=== PATIENT | male | born 1985 | race Two or more races ===

== ENCOUNTER 2016-09-04 11:36 | Emergency (ER) | payer OTHER, SELFPAY ==
[2016-09-04] MEDS ORDERED: ACETAMINOPHEN 325 MG TAB As Ordered ONE (14:53)
[2016-09-04] MEDS ORDERED: IBUPROFEN 800 MG TAB As Ordered ONE (14:54)
--- NOTE | 2016-09-04 14:56 | REP ---
Chest two views HISTORY: Cough Comparison: None Minimal peribronchial cuffing is present. The heart is normal in size. The pulmonary vasculature is normal in appearance. The bony structure is intact. IMPRESSION: There is minimal peribronchial cuffing consistent with asthma or bronchitis. Signed by Jose Laughlin MD 09/04/2016 02:48 P
[2016-09-04 15:42] LABS: ANION GAP 8 MEQ/L (8-16); BLOOD UREA NITROGEN 6 MG/DL (7-18); CALCIUM LEVEL 8.5 MG/DL (8.5-10.1); CARBON DIOXIDE LEVEL 26 MEQ/L (21-32); CHLORIDE LEVEL 101 MEQ/L (98-107); CREATININE FOR GFR 0.96 MG/DL (0.70-1.30); GLOMERULAR FILTRATION RATE > 60.0 (>60); GLUCOSE, FASTING 111 MG/DL (70-105); POTASSIUM SERUM 3.3 MEQ/L (3.5-5.1); SODIUM LEVEL 135 MEQ/L (136-145)
[2016-09-04] MEDS ORDERED: POTASSIUM CHLORIDE 10 MEQ SR TABLET As Ordered ONE (15:50)
[2016-09-04 15:53] LABS: BASO % 0.3 % (0.0-1.0); EOS % 0.1 % (0.0-3.0); LARGE UNSTAINED CELL # 0.1 K/mm3 (0.0-0.4); LARGE UNSTAINED CELL % 1.3 % (0.0-4.0); LYMPH # 0.5 K/mm3 (1.5-4.5); LYMPH % 7.2 % (24.0-44.0); MEAN CORPUSCULAR HEMOGLOBIN 30.6 pg (27.0-33.0); MEAN CORPUSCULAR HGB CONC 34.9 g/dl (32.0-36.5); MEAN CORPUSCULAR VOLUME 87.6 fl (80.0-96.0); MONO # 0.4 K/mm3 (0.0-0.8); MONO % 6.2 % (0.0-5.0); NEUTROPHILS # 5.3 K/mm3 (1.8-7.7); NEUTROPHILS % 84.9 % (36.0-66.0); PLATELET COUNT, AUTOMATED 167 k/mm3 (150-450); RED CELL DISTRIBUTION WIDTH 11.8 % (11.5-14.5); WHITE BLOOD COUNT 6.2 K/mm3 (4.0-10.0)
--- NOTE | 2016-09-04 16:32 | EDDOCDS ---
Physician Documentation [facility] Name: Saqib Novak Age: 31 yrs Sex: Male : 1985 Arrival Date: 09/04/2016 Time: 11:36 Bed I5 / M5 Private MD: No Pcp Disposition: 09/04/16 16:18 Discharged to Home/Self Care. Impression: Acute bronchitis, Fever, unspecified. - Condition is Stable. - Discharge Instructions: Acute Bronchitis, Fever, Adult. - Prescriptions for ZOFRAN ODT 4 mg - dissolve 1 tablet by ORAL route 4 times per day As needed do not chew, do not swallow whole; 10 tablet. Albuterol Sulfate 90 mcg/actuation Inhalation HFA Aerosol Inhaler - inhale 2 puff by INHALATION route every 4 hours As needed; 1 Inhaler. - Work Release Form - 3 day, Medication Reconciliation, Local Pharmacy Hours form. - [facility] up[facility]; When: Call to arrange an appointment; Reason: Recheck today's complaints, Continuance of care. - Problem is new. - Symptoms have improved. Historical: - Allergies: No known drug Allergies; - Home Meds: 1. ibuprofen 200 mg Oral tab 2 tabs (Last dose: 09/03/2016 22:30) - PMHx: Chronic Back pain; - PSHx: none; - Social history: Smoking status: Patient uses tobacco products, heavy tobacco smoker. No barriers to communication noted, The patient speaks fluent Thai, Speaks appropriately for age. - Family history: Not pertinent. - : The pt / caregiver states he / she is not on anticoagulants. Home medication list is obtained from the patient. - Exposure Risk Screening:: None identified. Vital Signs: 09/04 11:39 BP 171 / 89 RA Sitting (auto/reg); Pulse 110; Resp 20; Temp 99.5(O); Pulse Ox 99% on jrd R/A; Weight 86.64 kg / 191.01 lbs; Height 6 ft. 1 in. (185.42 cm); Pain 10/10; 14:22 BP 142 / 88; Pulse 120; Resp 24; Temp 103.9(O); Pulse Ox 99% on R/A; Pain 10/10; ct3 15:44 BP 144 / 73; Pulse 90; Resp 20; Temp 101.8(O); Pulse Ox 97% on R/A; Pain 9/10; ja5 16:18 Temp 100.9(O); dsf 16:29 BP 141 / 75; Pulse 93; Resp 20; Pulse Ox 96% on R/A; Pain 3/10; jc4 11:39 Body Mass Index 25.20 (86.64 kg, 185.42 cm) jrd MDM: 14:20 Vital Signs ordered. dt4 14:35 Chest, 2 View (pa\E\lat) Ordered. EDMS 14:37 IV Saline Lock ordered. dt4 14:37 NS 0.9% 1000 ml IV at bolus once ordered. dt4 14:37 Obtain sample by nasopharyngeal swab ordered. dt4 14:37 Acetaminophen Tablet 975 mg PO once ordered. dt4 14:37 Ibuprofen 800 mg PO once ordered. dt4 14:38 CBC with Diff Ordered. EDMS 14:38 Basic Metabolic Profile Ordered. EDMS 14:38 Urinalysis Ordered. EDMS 14:38 -Influenza A&B Rapid Antigen - Nose Ordered. EDMS 14:38 Urine Culture Ordered. EDMS 15:31 Financial registration complete. az 15:44 Potassium Chloride Extended Release Tablet 40 mEq PO once ordered. mo1 15:44 Chest, 2 View (pa\E\lat) Reviewed. mo1 15:44 [facility] Payment Agreement was scanned into [employer] and attached to record. az 16:01 -Influenza A&B Rapid Antigen - Nose Reviewed. mo1 16:01 CBC with Diff Reviewed. mo1 16:02 Basic Metabolic Profile Reviewed. mo1 16:11 Urinalysis Reviewed. mo1 Administered Medications: 14:59 Drug: Acetaminophen 975 mg [acetaminophen 325 mg tablet (3 tabs)] Route: PO; dsf 16:28 Follow up: Response: Temperature is decreased jc4 14:59 Drug: Ibuprofen 800 mg [ibuprofen 800 mg tablet (1 tabs)] Route: PO; dsf 16:28 Follow up: Response: Temperature is decreased jc4 15:04 Drug: NS 0.9% 1000 ml [sodium chloride 0.9 % intravenous solution] Route: IV; Rate: ja5 bolus; Site: left antecubital; 15:54 Follow up: IV Status: Completed infusion ja5 16:29 Follow up: BP 141 / 75; Pulse 93 bpm; Resp 20 bpm; Pulse Ox 96% RA; Pain 3/10 Adult jc4 15:53 Drug: Potassium Chloride 40 mEq [potassium chloride ER 10 mEq tablet,extended release ja5 (4 tabs)] Route: PO; Signatures: Dispatcher [employer] Jacki He RN RN hs1 Eve Colbert RN RN jc4 Dk Gabriel PA PA mo1 Adriana Handy PA-C PA-C dt4 Arlette Flores Desiree RN dsf Anderson, Jessica RN ja5 The chart was reviewed and I authenticate all verbal orders and agree with the evaluation and treatment provided.Attachments: 15:44 [facility] [place] Payment Agreement az MTDD
--- NOTE | 2016-09-04 16:33 | EDDOCDS ---
Nurse's Notes [facility] Name: Saqib Novak Age: 31 yrs Sex: Male : 1985 Arrival Date: 09/04/2016 Time: 11:36 Bed I5 / M5 Private MD: No Pcp Diagnosis: Acute bronchitis;Fever, unspecified Presentation: 09/04 11:41 Presenting complaint: Patient states: "Im sick as a dog" patient reports symptoms since hs1 Friday. Adult Sepsis Screening: The patient does not have new or worsening altered mentation. Patient's respiratory rate is less than 22. Systolic blood pressure is greater than 100. Patient has a qSOFA score of 0- Negative Sepsis Screen. Suicide/Homicide risk assessment- the patient denies having any suicidal and/or homicidal ideations and does not present with any other emotional, behavioral or mental health complaints. Status: Patient is not a maintenance service dispatcher or dependent. Transition of care: patient was not received from another setting of care. 11:41 Acuity: BRIAN Level 4 hs1 11:41 Method Of Arrival: Walkin/Carried/Asstd hs1 Triage Assessment: 11:42 General: Appears in no apparent distress, Behavior is cooperative. Pain: Location: all hs1 over Pain currently is 10 out of 10 on a pain scale. HIV screening NA for this visit Offered previously. Neurological: No deficits noted. Respiratory: Airway is patent Reports cough that is. GI: Reports nausea. Derm: Skin is pink, warm & dry. normal. Historical: - Allergies: No known drug Allergies; - Home Meds: 1. ibuprofen 200 mg Oral tab 2 tabs (Last dose: 09/03/2016 22:30) - PMHx: Chronic Back pain; - PSHx: none; - Social history: Smoking status: Patient uses tobacco products, heavy tobacco smoker. No barriers to communication noted, The patient speaks fluent Singaporean, Speaks appropriately for age. - Family history: Not pertinent. - : The pt / caregiver states he / she is not on anticoagulants. Home medication list is obtained from the patient. - Exposure Risk Screening:: None identified. Screenin:12 Screening information is obtained from the patient. Fall risk: No risks identified. ja5 Assistance ADL's: requires no assistance with activities of daily living. Abuse/DV Screen: The patient / caregiver reports he/she is: not in a situation that causes fear, pain or injury. Nutritional screening: On no prescribed diet. Advance Directives: Currently, there is no health care proxy. There is no active DNR order. There is no living will. There is no Power of Technical Programs Manager. home support is adequate. Assessment: 12:33 General: Patient states to registration staff he is going outside to have cigarette. hs1 15:12 General: Appears ill, Behavior is anxious, cooperative. Pain: Location: top of head and ja5 forehead Pain currently is 9 out of 10 on a pain scale. Neurological: Level of Consciousness is awake, alert, Oriented to person, place, time. Cardiovascular: Capillary refill < 3 seconds Heart tones S1 S2 present. Respiratory: Airway is patent Respiratory effort is even, unlabored, Respiratory pattern is regular, symmetrical, Breath sounds are clear bilaterally. GI: Denies nausea. Derm: Skin is intact, Skin is dry, Skin is normal, Skin temperature is hot. 16:29 General: Appears in no apparent distress, Behavior is cooperative, pleasant. Pain: Pain jc4 currently is 3 out of 10 on a pain scale. Neurological: Level of Consciousness is awake, alert, Oriented to person, place, time. Respiratory: Airway is patent Respiratory effort is even, unlabored, Respiratory pattern is regular, symmetrical. Derm: Skin is pink, warm & dry. Vital Signs: 11:39 BP 171 / 89 RA Sitting (auto/reg); Pulse 110; Resp 20; Temp 99.5(O); Pulse Ox 99% on jrd R/A; Weight 86.64 kg; Height 6 ft. 1 in. (185.42 cm); Pain 10/10; 14:22 BP 142 / 88; Pulse 120; Resp 24; Temp 103.9(O); Pulse Ox 99% on R/A; Pain 10/10; ct3 15:44 BP 144 / 73; Pulse 90; Resp 20; Temp 101.8(O); Pulse Ox 97% on R/A; Pain 9/10; ja5 16:18 Temp 100.9(O); dsf 16:29 BP 141 / 75; Pulse 93; Resp 20; Pulse Ox 96% on R/A; Pain 3/10; jc4 11:39 Body Mass Index 25.20 (86.64 kg, 185.42 cm) [facility] Vitals: 11:39 Log In Time: September 04, 2016 at 11:35. jrd ED Course: 11:37 Patient visited by Saqib Chinchilla PCA. jrd 11:37 Patient moved to Waiting jrd 11:39 No Pcp is Private Physician. jrd 11:39 Patient visited by Saqib Chinchilla PCA. jrd 11:40 Patient moved to Pre RCE jrd 11:41 Triage Initiated hs1 13:47 Patient moved to Triage 1 ct3 14:20 Adriana Handy PA-C is PHCP. dt4 14:20 Rogers Mathews MD is Attending Physician. dt4 14:20 Patient visited by Adriana Handy PA-C. dt4 14:24 Patient visited by Kadi Alcazar PCA. ct3 14:35 Patient moved to TR7 hs1 14:36 Eve Colbert, SHERWIN is Primary Nurse. mlb1 14:36 Ilene Ramey,SHERWIN is Primary Nurse. mlb1 14:36 Patient moved to I5 / M5 mlb1 14:39 The patient / caregiver is instructed regarding the plan of care and ED course. jc4 15:04 Basic Metabolic Profile Sent. ja5 15:04 CBC with Diff Sent. ja5 15:05 -Influenza A&B Rapid Antigen - Nose Sent. jc4 15:09 Inserted saline lock: 20 gauge in left antecubital area. ja5 15:15 Patient visited by Ilene Ramey RN. ja5 15:33 Chest, 2 View (pa\\E\\lat) Returned. EDMS 15:41 [facility] is Referral Physician. dt4 15:41 Your own Physician is Referral Physician. dt4 15:43 PHCP role handed off by Adriana Handy PA-C mo1 15:43 Dk Gabriel PA is PHCP. mo1 15:44 [facility] [place] was scanned into [employer] and attached to record. az 15:46 Urine Culture Sent. jc4 15:46 Urinalysis Sent. jc4 16:17 [facility] is Referral Physician. mo1 16:30 Discontinued lock intact, bleeding controlled, pressure dressing applied, No jc4 redness/swelling at site. No procedures done that require assistance. Administered Medications: 14:59 Drug: Acetaminophen 975 mg [acetaminophen 325 mg tablet (3 tabs)] Route: PO; dsf 16:28 Follow up: Response: Temperature is decreased jc4 14:59 Drug: Ibuprofen 800 mg [ibuprofen 800 mg tablet (1 tabs)] Route: PO; dsf 16:28 Follow up: Response: Temperature is decreased jc4 15:04 Drug: NS 0.9% 1000 ml [sodium chloride 0.9 % intravenous solution] Route: IV; Rate: ja5 bolus; Site: left antecubital; 15:54 Follow up: IV Status: Completed infusion ja5 16:29 Follow up: BP 141 / 75; Pulse 93 bpm; Resp 20 bpm; Pulse Ox 96% RA; Pain 310 Adult jc4 15:53 Drug: Potassium Chloride 40 mEq [potassium chloride ER 10 mEq tablet,extended release ja5 (4 tabs)] Route: PO; Order Results: Lab Order: CBC with Diff; SPEC'M 09/04/16 15:01 Test: WHITE BLOOD COUNT; Value: 6.2; Range: 4.0-10.0; Units: K/mm3; Status: F Test: RED BLOOD COUNT; Value: 4.93; Range: 4.30-6.10; Units: M/mm3; Status: F Test: HEMOGLOBIN; Value: 15.1; Range: 14.0-18.0; Units: g/dl; Status: F Test: HEMATOCRIT; Value: 43.1; Range: 42.0-52.0; Units: %; Status: F Test: MEAN CORPUSCULAR VOLUME; Value: 87.6; Range: 80.0-96.0; Units: fl; Status: F Test: MEAN CORPUSCULAR HEMOGLOBIN; Value: 30.6; Range: 27.0-33.0; Units: pg; Status: F Test: MEAN CORPUSCULAR HGB CONC; Value: 34.9; Range: 32.0-36.5; Units: g/dl; Status: F Test: RED CELL DISTRIBUTION WIDTH; Value: 11.8; Range: 11.5-14.5; Units: %; Status: F Test: PLATELET COUNT, AUTOMATED; Value: 167; Range: 150-450; Units: k/mm3; Status: F Test: NEUTROPHILS %; Value: 84.9; Range: 36.0-66.0; Abnormal: Above high normal; Units: %; Status: F Test: LYMPH %; Value: 7.2; Range: 24.0-44.0; Abnormal: Below low normal; Units: %; Status: F Test: MONO %; Value: 6.2; Range: 0.0-5.0; Abnormal: Above high normal; Units: %; Status: F Test: EOS %; Value: 0.1; Range: 0.0-3.0; Units: %; Status: F Test: BASO %; Value: 0.3; Range: 0.0-1.0; Units: %; Status: F Test: LARGE UNSTAINED CELL %; Value: 1.3; Range: 0.0-4.0; Units: %; Status: F Test: NEUTROPHILS #; Value: 5.3; Range: 1.8-7.7; Units: K/mm3; Status: F Test: LYMPH #; Value: 0.5; Range: 1.5-4.5; Abnormal: Below low normal; Units: K/mm3; Status: F Test: MONO #; Value: 0.4; Range: 0.0-0.8; Units: K/mm3; Status: F Test: EOS #; Value: 0.0; Range: 0.0-0.50; Units: K/mm3; Status: F Test: BASO #; Value: 0.0; Range: 0.0-0.2; Units: K/mm3; Status: F Test: LARGE UNSTAINED CELL #; Value: 0.1; Range: 0.0-0.4; Units: K/mm3; Status: F Lab Order: Basic Metabolic Profile; [facility] 09/04/16 15:01 Test: GLUCOSE, FASTING; Value: 111; Range: 70-105; Abnormal: Above high normal; Units: MG/DL; Status: F Test: BLOOD UREA NITROGEN; Value: 6; Range: 7-18; Abnormal: Below low normal; Units: MG/DL; Status: F Test: CREATININE FOR GFR; Value: 0.96; Range: 0.70-1.30; Units: MG/DL; Status: F Test: GLOMERULAR FILTRATION RATE; Value: > 60.0; Range: >60; Status: F Test: SODIUM LEVEL; Value: 135; Range: 136-145; Abnormal: Below low normal; Units: MEQ/L; Status: F Test: POTASSIUM SERUM; Value: 3.3; Range: 3.5-5.1; Abnormal: Below low normal; Units: MEQ/L; Status: F Test: CHLORIDE LEVEL; Value: 101; Range: 98-107; Units: MEQ/L; Status: F Test: CARBON DIOXIDE LEVEL; Value: 26; Range: 21-32; Units: MEQ/L; Status: F Test: ANION GAP; Value: 8; Range: 8-16; Units: MEQ/L; Status: F Test: CALCIUM LEVEL; Value: 8.5; Range: 8.5-10.1; Units: MG/DL; Status: F Test Note: ; Units are mL/min/1.73 m2 Chronic Kidney Disease Staging per NKF: Stage I & II GFR >=60 Normal to Mildly Decreased Stage III GFR 30-59 Moderately Decreased Stage IV GFR 15-29 Severely Decreased Stage V GFR <15 Very Little GFR Left ESRD GFR <15 on SOCIAL SERVICES ASSISTANT Lab Order: -Influenza A&B Rapid Antigen - Nose; SPEC'M 09/04/16 15:01 Test: INFLUENZA A RAPID SCR by ICA; Value: INFLUENZA A RESULTS NEGATIVE; Status: F Test: INFLUENZA A RAPID SCR by ICA; Value: Comments:; Status: F Test: INFLUENZA B RAPID SCR by ICA; Value: INFLUENZA B RESULTS NEGATIVE; Status: F Test Note: ; The Influenza test is a direct rapid immunoassay for the qualitative detection of Influenza viral antigen. Cell culture (Viral Culture) testing should be considered to confirm NEGATIVE results and to assist in detecting other viruses that can provide similar clinical symptoms. Please contact the lab within 24 hours ([phone]) if confirmatory testing is desired. Lab Order: Urinalysis; SPEC'M 09/04/16 15:43 Test: APPEARANCE, URINE; Value: CLEAR; Range: CLEAR; Status: F Test: COLOR, URINE; Value: YELLOW; Range: YELLOW; Status: F Test: PH,URINE; Value: 8.0; Range: 5.0-9.0; Units: UNITS; Status: F Test: SPECIFIC GRAVITY URINE AUTO; Value: 1.020; Range: 1.002-1.035; Status: F Test: PROTEIN, URINE AUTO; Value: NEGATIVE; Range: NEGATIVE; Units: mg/dL; Status: F Test: GLUCOSE, URINE (UA) AUTO; Value: NEGATIVE; Range: NEGATIVE; Units: mg/dL; Status: F Test: KETONE, URINE AUTO; Value: TRACE; Range: NEGATIVE; Abnormal: Above high normal; Units: mg/dL; Status: F Test: UROBILINOGEN, URINE AUTO; Value: 2.0; Range: 0.0-2.0; Abnormal: Above high normal; Units: mg/dL; Status: F Test: BILIRUBIN, URINE AUTO; Value: NEGATIVE; Range: NEGATIVE; Status: F Test: NITRITE, URINE AUTO; Value: NEGATIVE; Range: NEGATIVE; Status: F Test: LEUKOCYTE ESTERASE, URINE AUTO; Value: NEGATIVE; Range: NEGATIVE; Status: F Test: BLOOD, URINE BLOOD; Value: NEGATIVE; Range: NEGATIVE; Status: F Test: WBC, URINE AUTO; Value: 1; Range: 0-3; Units: /HPF; Status: F Test: RBC, URINE AUTO; Value: 6; Range: 0-3; Abnormal: Above high normal; Units: /HPF; Status: F Test: BACTERIA, URINE AUTO; Value: NEGATIVE; Range: NEGATIVE; Status: F Test: SQUAMOUS EPITHELIAL CELL UR AU; Value: 0; Range: 0-6; Units: /HPF; Status: F Test: MUCUS, URINE; Value: SMALL; Range: NEGATIVE; Status: F Test: HYALINE CAST, URINE AUTO; Value: 0; Range: 0-1; Units: /LPF; Status: F Radiology Order: Chest, 2 View (pa\\E\\lat) Test: Chest, 2 View (pa\\E\\lat) REASON FOR EXAMINATION: fever;Cough; Chest two views; ; HISTORY: Cough; ; Comparison: None; ; Minimal peribronchial cuffing is present. The heart is normal in size. The; pulmonary vasculature is normal in appearance. The bony structure is intact.; ; IMPRESSION: There is minimal peribronchial cuffing consistent with asthma or; bronchitis.; ; ; Signed by; Jose Laughlin MD 09/04/2016 02:48 P; Outcome: 15:41 Discharge ordered by Provider. dt4 16:18 Discharge ordered by Provider. mo1 16:30 Discharge Assessment: Patient awake, alert and oriented x 3. No cognitive and/or jc4 functional deficits noted. Patient verbalized understanding of disposition instructions. patient administered narcotics - no. The following High Risk Discharge criteria are identified: None. Discharged to home ambulatory. Condition: stable. Discharge instructions given to patient, Instructed on discharge instructions, follow up and referral plans. medication usage, Demonstrated understanding of instructions, medications, Pt was receptive of discharge instructions/ teaching. Work note provided to patient. No special radiology studies were completed. Property :Personal belongings accompany Pt. 16:31 Patient left the ED. jc4 Signatures: Dispatcher [employer] EDPR Dk Nogueira RN RN mlb1 Jacki Roldan RN RN hs1 Eve Colbert RN RN jc4 Kadi Alcazar, BEAD SUPERVISOR BEAD SUPERVISOR ct3 Starla Lainez,RN RN dsf Dk Gabriel PA PA mo1 Adriana Handy, PA-C PA-C dt4 Saqib Chinchilla, BEAD SUPERVISOR BEAD SUPERVISOR d Arlette Flores Jessica,RN RN ja5 Corrections: (The following items were deleted from the chart) 11:43 11:41 Presenting complaint: Patient states: "Im sick as a dog" hs1 hs1 MTDD
--- NOTE | 2016-09-06 17:31 | EDDOCDS ---
Physician Documentation [facility] Name: Saqib Novak Age: 31 yrs Sex: Male : 1985 Arrival Date: 09/04/2016 Time: 11:36 Bed I5 / M5 Private MD: No Pcp Disposition: 09/04/16 16:18 Discharged to Home/Self Care. Impression: Acute bronchitis, Fever, unspecified. - Condition is Stable. - Discharge Instructions: Acute Bronchitis, Fever, Adult. - Prescriptions for ZOFRAN ODT 4 mg - dissolve 1 tablet by ORAL route 4 times per day As needed do not chew, do not swallow whole; 10 tablet. Albuterol Sulfate 90 mcg/actuation Inhalation HFA Aerosol Inhaler - inhale 2 puff by INHALATION route every 4 hours As needed; 1 Inhaler. - Work Release Form - 3 day, Medication Reconciliation, Local Pharmacy Hours form. - Follow up: [facility]; When: Call to arrange an appointment; Reason: Recheck today's complaints, Continuance of care. - Problem is new. - Symptoms have improved. Historical: - Allergies: No known drug Allergies; - Home Meds: 1. ibuprofen 200 mg Oral tab 2 tabs (Last dose: 09/03/2016 22:30) - PMHx: Chronic Back pain; - PSHx: none; - Social history: Smoking status: Patient uses tobacco products, heavy tobacco smoker. No barriers to communication noted, The patient speaks fluent Latvian, Speaks appropriately for age. - Family history: Not pertinent. - : The pt / caregiver states he / she is not on anticoagulants. Home medication list is obtained from the patient. - Exposure Risk Screening:: None identified. Vital Signs: 09/04 11:39 BP 171 / 89 RA Sitting (auto/reg); Pulse 110; Resp 20; Temp 99.5(O); Pulse Ox 99% on jrd R/A; Weight 86.64 kg / 191.01 lbs; Height 6 ft. 1 in. (185.42 cm); Pain 10/10; 14:22 BP 142 / 88; Pulse 120; Resp 24; Temp 103.9(O); Pulse Ox 99% on R/A; Pain 10/10; ct3 15:44 BP 144 / 73; Pulse 90; Resp 20; Temp 101.8(O); Pulse Ox 97% on R/A; Pain 9/10; ja5 16:18 Temp 100.9(O); dsf 16:29 BP 141 / 75; Pulse 93; Resp 20; Pulse Ox 96% on R/A; Pain 3/10; jc4 11:39 Body Mass Index 25.20 (86.64 kg, 185.42 cm) jrd MDM: 14:20 Vital Signs ordered. dt4 14:35 Chest, 2 View (pa\E\lat) Ordered. EDMS 14:37 IV Saline Lock ordered. dt4 14:37 NS 0.9% 1000 ml IV at bolus once ordered. dt4 14:37 Obtain sample by nasopharyngeal swab ordered. dt4 14:37 Acetaminophen Tablet 975 mg PO once ordered. dt4 14:37 Ibuprofen 800 mg PO once ordered. dt4 14:38 CBC with Diff Ordered. EDMS 14:38 Basic Metabolic Profile Ordered. EDMS 14:38 Urinalysis Ordered. EDMS 14:38 -Influenza A&B Rapid Antigen - Nose Ordered. EDMS 14:38 Urine Culture Ordered. EDMS 15:31 Financial registration complete. az 15:44 Potassium Chloride Extended Release Tablet 40 mEq PO once ordered. mo1 15:44 Chest, 2 View (pa\E\lat) Reviewed. mo1 15:44 [facility] Payment Agreement was scanned into [employer] and attached to record. az 16:01 -Influenza A&B Rapid Antigen - Nose Reviewed. mo1 16:01 CBC with Diff Reviewed. mo1 16:02 Basic Metabolic Profile Reviewed. mo1 16:11 Urinalysis Reviewed. mo1 09/05 09:13 T-Sheet-- Draft Copy was scanned into [employer] and attached to record. gb Administered Medications: 09/04 14:59 Drug: Acetaminophen 975 mg [acetaminophen 325 mg tablet (3 tabs)] Route: PO; dsf 16:28 Follow up: Response: Temperature is decreased jc4 14:59 Drug: Ibuprofen 800 mg [ibuprofen 800 mg tablet (1 tabs)] Route: PO; dsf 16:28 Follow up: Response: Temperature is decreased jc4 15:04 Drug: NS 0.9% 1000 ml [sodium chloride 0.9 % intravenous solution] Route: IV; Rate: ja5 bolus; Site: left antecubital; 15:54 Follow up: IV Status: Completed infusion ja5 16:29 Follow up: BP 141 / 75; Pulse 93 bpm; Resp 20 bpm; Pulse Ox 96% RA; Pain 310 Adult jc4 15:53 Drug: Potassium Chloride 40 mEq [potassium chloride ER 10 mEq tablet,extended release ja5 (4 tabs)] Route: PO; Signatures: Dispatcher [employer] EDMS Luisa Jolley, Reg Reg gb Jacki Roldan RN RN hs1 Eve Colbert RN RN jc4 Dk Gabriel PA PA mo1 Adriana Handy PA-C PAChari dt4 Areltte Flores Desiree RN dsf Anderson, Jessica RN ja5 The chart was reviewed and I authenticate all verbal orders and agree with the evaluation and treatment provided.Attachments: 15:44 [facility] Payment Agreement az 09/05 09:13 T-Sheet-- Draft Copy gb Chart Complete MTDD
--- NOTE | 2016-09-06 17:31 | EDDOCDS ---
Physician Documentation [facility] Name: Saqib Novak Age: 31 yrs Sex: Male : 1985 Arrival Date: 09/04/2016 Time: 11:36 Bed I5 / M5 Private MD: No Pcp Disposition: 09/04/16 16:18 Discharged to Home/Self Care. Impression: Acute bronchitis, Fever, unspecified. - Condition is Stable. - Discharge Instructions: Acute Bronchitis, Fever, Adult. - Prescriptions for ZOFRAN ODT 4 mg - dissolve 1 tablet by ORAL route 4 times per day As needed do not chew, do not swallow whole; 10 tablet. Albuterol Sulfate 90 mcg/actuation Inhalation HFA Aerosol Inhaler - inhale 2 puff by INHALATION route every 4 hours As needed; 1 Inhaler. - Work Release Form - 3 day, Medication Reconciliation, Local Pharmacy Hours form. - [facility] up: [facility]; When: Call to arrange an appointment; Reason: Recheck today's complaints, Continuance of care. - Problem is new. - Symptoms have improved. Historical: - Allergies: No known drug Allergies; - Home Meds: 1. ibuprofen 200 mg Oral tab 2 tabs (Last dose: 09/03/2016 22:30) - PMHx: Chronic Back pain; - PSHx: none; - Social history: Smoking status: Patient uses tobacco products, heavy tobacco smoker. No barriers to communication noted, The patient speaks fluent Chinese, Speaks appropriately for age. - Family history: Not pertinent. - : The pt / caregiver states he / she is not on anticoagulants. Home medication list is obtained from the patient. - Exposure Risk Screening:: None identified. Vital Signs: 09/04 11:39 BP 171 / 89 RA Sitting (auto/reg); Pulse 110; Resp 20; Temp 99.5(O); Pulse Ox 99% on jrd R/A; Weight 86.64 kg / 191.01 lbs; Height 6 ft. 1 in. (185.42 cm); Pain 10/10; 14:22 BP 142 / 88; Pulse 120; Resp 24; Temp 103.9(O); Pulse Ox 99% on R/A; Pain 10/10; ct3 15:44 BP 144 / 73; Pulse 90; Resp 20; Temp 101.8(O); Pulse Ox 97% on R/A; Pain 9/10; ja5 16:18 Temp 100.9(O); dsf 16:29 BP 141 / 75; Pulse 93; Resp 20; Pulse Ox 96% on R/A; Pain 3/10; jc4 11:39 Body Mass Index 25.20 (86.64 kg, 185.42 cm) jrd MDM: 14:20 Vital Signs ordered. dt4 14:35 Chest, 2 View (pa\E\lat) Ordered. EDMS 14:37 IV Saline Lock ordered. dt4 14:37 NS 0.9% 1000 ml IV at bolus once ordered. dt4 14:37 Obtain sample by nasopharyngeal swab ordered. dt4 14:37 Acetaminophen Tablet 975 mg PO once ordered. dt4 14:37 Ibuprofen 800 mg PO once ordered. dt4 14:38 CBC with Diff Ordered. EDMS 14:38 Basic Metabolic Profile Ordered. EDMS 14:38 Urinalysis Ordered. EDMS 14:38 -Influenza A&B Rapid Antigen - Nose Ordered. EDMS 14:38 Urine Culture Ordered. EDMS 15:31 Financial registration complete. az 15:44 Potassium Chloride Extended Release Tablet 40 mEq PO once ordered. mo1 15:44 Chest, 2 View (pa\E\lat) Reviewed. mo1 15:44 [facility] Payment Agreement was scanned into Vacation View and attached to record. az 16:01 -Influenza A&B Rapid Antigen - Nose Reviewed. mo1 16:01 CBC with Diff Reviewed. mo1 16:02 Basic Metabolic Profile Reviewed. mo1 16:11 Urinalysis Reviewed. mo1 09/05 09:13 T-Sheet-- Draft Copy was scanned into [employer]ation View and attached to record. gb Administered Medications: 09/04 14:59 Drug: Acetaminophen 975 mg [acetaminophen 325 mg tablet (3 tabs)] Route: PO; dsf 16:28 Follow up: Response: Temperature is decreased jc4 14:59 Drug: Ibuprofen 800 mg [ibuprofen 800 mg tablet (1 tabs)] Route: PO; dsf 16:28 Follow up: Response: Temperature is decreased jc4 15:04 Drug: NS 0.9% 1000 ml [sodium chloride 0.9 % intravenous solution] Route: IV; Rate: ja5 bolus; Site: left antecubital; 15:54 Follow up: IV Status: Completed infusion ja5 16:29 Follow up: BP 141 / 75; Pulse 93 bpm; Resp 20 bpm; Pulse Ox 96% RA; Pain 310 Adult jc4 15:53 Drug: Potassium Chloride 40 mEq [potassium chloride ER 10 mEq tablet,extended release ja5 (4 tabs)] Route: PO; Signatures: Dispatcher MedHost EDMS Luisa Jolley, Reg Reg gb Jacki Roldan RN RN hs1 Eve Colbert RN RN jc4 Dk Gabriel PA PA mo1 Adriana Handy PA-C PAChari dt4 Arlette Flores Desiree RN dsf Anderson, Jessica RN ja5 The chart was reviewed and I authenticate all verbal orders and agree with the evaluation and treatment provided.Attachments: 15:44 [facility] Payment Agreement az 09/05 09:13 T-Sheet-- Draft Copy gb Chart Complete MTDD
--- NOTE | 2016-09-06 17:31 | EDDOCDS ---
Nurse's Notes [facility] Name: Saqib Novak Age: 31 yrs Sex: Male : 1985 Arrival Date: 09/04/2016 Time: 11:36 Bed I5 / M5 Private MD: No Pcp Diagnosis: Acute bronchitis;Fever, unspecified Presentation: 09/04 11:41 Presenting complaint: Patient states: "Im sick as a dog" patient reports symptoms since hs1 Friday. Adult Sepsis Screening: The patient does not have new or worsening altered mentation. Patient's respiratory rate is less than 22. Systolic blood pressure is greater than 100. Patient has a qSOFA score of 0- Negative Sepsis Screen. Suicide/Homicide risk assessment- the patient denies having any suicidal and/or homicidal ideations and does not present with any other emotional, behavioral or mental health complaints. 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 Transition of care: patient was not received from another setting of care. 11:41 Acuity: BRIAN Level 4 hs1 11:41 Method Of Arrival: Walkin/Carried/Asstd hs1 Triage Assessment: 11:42 General: Appears in no apparent distress, Behavior is cooperative. Pain: Location: all hs1 over Pain currently is 10 out of 10 on a pain scale. HIV screening NA for this visit Offered previously. Neurological: No deficits noted. Respiratory: Airway is patent Reports cough that is. GI: Reports nausea. Derm: Skin is pink, warm & dry. normal. Historical: - Allergies: No known drug Allergies; - Home Meds: 1. ibuprofen 200 mg Oral tab 2 tabs (Last dose: 09/03/2016 22:30) - PMHx: Chronic Back pain; - PSHx: none; - Social history: Smoking status: Patient uses tobacco products, heavy tobacco smoker. No barriers to communication noted, The patient speaks fluent Eritrean, Speaks appropriately for age. - Family history: Not pertinent. - : The pt / caregiver states he / she is not on anticoagulants. Home medication list is obtained from the patient. - Exposure Risk Screening:: None identified. Screenin:12 Screening information is obtained from the patient. Fall risk: No risks identified. ja5 Assistance ADL's: requires no assistance with activities of daily living. Abuse/DV Screen: The patient / caregiver reports he/she is: not in a situation that causes fear, pain or injury. Nutritional screening: On no prescribed diet. Advance Directives: Currently, there is no health care proxy. There is no active DNR order. There is no living will. There is no Power of Bung Sewer. home support is adequate. Assessment: 12:33 General: Patient states to registration staff he is going outside to have cigarette. hs1 15:12 General: Appears ill, Behavior is anxious, cooperative. Pain: Location: top of head and ja5 forehead Pain currently is 9 out of 10 on a pain scale. Neurological: Level of Consciousness is awake, alert, Oriented to person, place, time. Cardiovascular: Capillary refill < 3 seconds Heart tones S1 S2 present. Respiratory: Airway is patent Respiratory effort is even, unlabored, Respiratory pattern is regular, symmetrical, Breath sounds are clear bilaterally. GI: Denies nausea. Derm: Skin is intact, Skin is dry, Skin is normal, Skin temperature is hot. 16:29 General: Appears in no apparent distress, Behavior is cooperative, pleasant. Pain: Pain jc4 currently is 3 out of 10 on a pain scale. Neurological: Level of Consciousness is awake, alert, Oriented to person, place, time. Respiratory: Airway is patent Respiratory effort is even, unlabored, Respiratory pattern is regular, symmetrical. Derm: Skin is pink, warm & dry. Vital Signs: 11:39 BP 171 / 89 RA Sitting (auto/reg); Pulse 110; Resp 20; Temp 99.5(O); Pulse Ox 99% on jrd R/A; Weight 86.64 kg; Height 6 ft. 1 in. (185.42 cm); Pain 10/10; 14:22 BP 142 / 88; Pulse 120; Resp 24; Temp 103.9(O); Pulse Ox 99% on R/A; Pain 10/10; ct3 15:44 BP 144 / 73; Pulse 90; Resp 20; Temp 101.8(O); Pulse Ox 97% on R/A; Pain 9/10; ja5 16:18 Temp 100.9(O); dsf 16:29 BP 141 / 75; Pulse 93; Resp 20; Pulse Ox 96% on R/A; Pain 3/10; jc4 11:39 Body Mass Index 25.20 (86.64 kg, 185.42 cm) [facility] Vitals: 11:39 Log In Time: September 04, 2016 at 11:35. jrd ED Course: 11:37 Patient visited by Saqib Chinchilla PCA. jrd 11:37 Patient moved to Waiting jrd 11:39 No Pcp is Private Physician. jrd 11:39 Patient visited by Saqib Chinchilla PCA. jrd 11:40 Patient moved to Pre RCE jrd 11:41 Triage Initiated hs1 13:47 Patient moved to Triage 1 ct3 14:20 Adriana Handy PA-C is PHCP. dt4 14:20 Rogers Mathews MD is Attending Physician. dt4 14:20 Patient visited by Adriana Handy PA-C. dt4 14:24 Patient visited by Kadi Alcazar PCA. ct3 14:35 Patient moved to TR7 hs1 14:36 Eve Colbert, SHERWIN is Primary Nurse. mlb1 14:36 Ilene Ramey,SHERWIN is Primary Nurse. mlb1 14:36 Patient moved to I5 / M5 mlb1 14:39 The patient / caregiver is instructed regarding the plan of care and ED course. jc4 15:04 Basic Metabolic Profile Sent. ja5 15:04 CBC with Diff Sent. ja5 15:05 -Influenza A&B Rapid Antigen - Nose Sent. jc4 15:09 Inserted saline lock: 20 gauge in left antecubital area. ja5 15:15 Patient visited by Ilene Ramey,SHERWIN. ja5 15:33 Chest, 2 View (pa\\E\\lat) Returned. EDMS 15:41 [facility] is Referral Physician. dt4 15:41 Your own Physician is Referral Physician. dt4 15:43 PHCP role handed off by Adriana Handy PA-C mo1 15:43 Dk Gabriel PA is PHCP. mo1 15:44 [facility] [place] [facility] Payment Agreement was scanned into Bookitit and attached to record. az 15:46 Urine Culture Sent. jc4 15:46 Urinalysis Sent. jc4 16:17 [facility] is Referral Physician. mo1 16:30 Discontinued lock intact, bleeding controlled, pressure dressing applied, No jc4 redness/swelling at site. No procedures done that require assistance. 09/05 09:13 T-Sheet-- Draft Copy was scanned into Bookitit and attached to record. gb Administered Medications: 09/04 14:59 Drug: Acetaminophen 975 mg [acetaminophen 325 mg tablet (3 tabs)] Route: PO; dsf 16:28 Follow up: Response: Temperature is decreased jc4 14:59 Drug: Ibuprofen 800 mg [ibuprofen 800 mg tablet (1 tabs)] Route: PO; dsf 16:28 Follow up: Response: Temperature is decreased jc4 15:04 Drug: NS 0.9% 1000 ml [sodium chloride 0.9 % intravenous solution] Route: IV; Rate: ja5 bolus; Site: left antecubital; 15:54 Follow up: IV Status: Completed infusion ja5 16:29 Follow up: BP 141 / 75; Pulse 93 bpm; Resp 20 bpm; Pulse Ox 96% RA; Pain 10/04 Adult jc4 15:53 Drug: Potassium Chloride 40 mEq [potassium chloride ER 10 mEq tablet,extended release ja5 (4 tabs)] Route: PO; Order Results: Lab Order: CBC with Diff; SPEC'M 09/04/16 15:01 Test: WHITE BLOOD COUNT; Value: 6.2; Range: 4.0-10.0; Units: K/mm3; Status: F Test: RED BLOOD COUNT; Value: 4.93; Range: 4.30-6.10; Units: M/mm3; Status: F Test: HEMOGLOBIN; Value: 15.1; Range: 14.0-18.0; Units: g/dl; Status: F Test: HEMATOCRIT; Value: 43.1; Range: 42.0-52.0; Units: %; Status: F Test: MEAN CORPUSCULAR VOLUME; Value: 87.6; Range: 80.0-96.0; Units: fl; Status: F Test: MEAN CORPUSCULAR HEMOGLOBIN; Value: 30.6; Range: 27.0-33.0; Units: pg; Status: F Test: MEAN CORPUSCULAR HGB CONC; Value: 34.9; Range: 32.0-36.5; Units: g/dl; Status: F Test: RED CELL DISTRIBUTION WIDTH; Value: 11.8; Range: 11.5-14.5; Units: %; Status: F Test: PLATELET COUNT, AUTOMATED; Value: 167; Range: 150-450; Units: k/mm3; Status: F Test: NEUTROPHILS %; Value: 84.9; Range: 36.0-66.0; Abnormal: Above high normal; Units: %; Status: F Test: LYMPH %; Value: 7.2; Range: 24.0-44.0; Abnormal: Below low normal; Units: %; Status: F Test: MONO %; Value: 6.2; Range: 0.0-5.0; Abnormal: Above high normal; Units: %; Status: F Test: EOS %; Value: 0.1; Range: 0.0-3.0; Units: %; Status: F Test: BASO %; Value: 0.3; Range: 0.0-1.0; Units: %; Status: F Test: LARGE UNSTAINED CELL %; Value: 1.3; Range: 0.0-4.0; Units: %; Status: F Test: NEUTROPHILS #; Value: 5.3; Range: 1.8-7.7; Units: K/mm3; Status: F Test: LYMPH #; Value: 0.5; Range: 1.5-4.5; Abnormal: Below low normal; Units: K/mm3; Status: F Test: MONO #; Value: 0.4; Range: 0.0-0.8; Units: K/mm3; Status: F Test: EOS #; Value: 0.0; Range: 0.0-0.50; Units: K/mm3; Status: F Test: BASO #; Value: 0.0; Range: 0.0-0.2; Units: K/mm3; Status: F Test: LARGE UNSTAINED CELL #; Value: 0.1; Range: 0.0-0.4; Units: K/mm3; Status: F Lab Order: Basic Metabolic Profile; SPEC'M 09/04/16 15:01 Test: GLUCOSE, FASTING; Value: 111; Range: 70-105; Abnormal: Above high normal; Units: MG/DL; Status: F Test: BLOOD UREA NITROGEN; Value: 6; Range: 7-18; Abnormal: Below low normal; Units: MG/DL; Status: F Test: CREATININE FOR GFR; Value: 0.96; Range: 0.70-1.30; Units: MG/DL; Status: F Test: GLOMERULAR FILTRATION RATE; Value: > 60.0; Range: >60; Status: F Test: SODIUM LEVEL; Value: 135; Range: 136-145; Abnormal: Below low normal; Units: MEQ/L; Status: F Test: POTASSIUM SERUM; Value: 3.3; Range: 3.5-5.1; Abnormal: Below low normal; Units: MEQ/L; Status: F Test: CHLORIDE LEVEL; Value: 101; Range: 98-107; Units: MEQ/L; Status: F Test: CARBON DIOXIDE LEVEL; Value: 26; Range: 21-32; Units: MEQ/L; Status: F Test: ANION GAP; Value: 8; Range: 8-16; Units: MEQ/L; Status: F Test: CALCIUM LEVEL; Value: 8.5; Range: 8.5-10.1; Units: MG/DL; Status: F Test Note: ; Units are mL/min/1.73 m2 Chronic Kidney Disease Staging per NKF: Stage I & II GFR >=60 Normal to Mildly Decreased Stage III GFR 30-59 Moderately Decreased Stage IV GFR 15-29 Severely Decreased Stage V GFR <15 Very Little GFR Left ESRD GFR <15 on TELEPHONE RECORDER Lab Order: -Influenza A&B Rapid Antigen - Nose; SPEC'M 09/04/16 15:01 Test: INFLUENZA A RAPID SCR by ICA; Value: INFLUENZA A RESULTS NEGATIVE; Status: F Test: INFLUENZA A RAPID SCR by ICA; Value: Comments:; Status: F Test: INFLUENZA B RAPID SCR by ICA; Value: INFLUENZA B RESULTS NEGATIVE; Status: F Test Note: ; The Influenza test is a direct rapid immunoassay for the qualitative detection of Influenza viral antigen. Cell culture (Viral Culture) testing should be considered to confirm NEGATIVE results and to assist in detecting other viruses that can provide similar clinical symptoms. Please contact the lab within 24 hours ([phone]) if confirmatory testing is desired. Lab Order: Urinalysis; SPEC'M 09/04/16 15:43 Test: APPEARANCE, URINE; Value: CLEAR; Range: CLEAR; Status: F Test: COLOR, URINE; Value: YELLOW; Range: YELLOW; Status: F Test: PH,URINE; Value: 8.0; Range: 5.0-9.0; Units: UNITS; Status: F Test: SPECIFIC GRAVITY URINE AUTO; Value: 1.020; Range: 1.002-1.035; Status: F Test: PROTEIN, URINE AUTO; Value: NEGATIVE; Range: NEGATIVE; Units: mg/dL; Status: F Test: GLUCOSE, URINE (UA) AUTO; Value: NEGATIVE; Range: NEGATIVE; Units: mg/dL; Status: F Test: KETONE, URINE AUTO; Value: TRACE; Range: NEGATIVE; Abnormal: Above high normal; Units: mg/dL; Status: F Test: UROBILINOGEN, URINE AUTO; Value: 2.0; Range: 0.0-2.0; Abnormal: Above high normal; Units: mg/dL; Status: F Test: BILIRUBIN, URINE AUTO; Value: NEGATIVE; Range: NEGATIVE; Status: F Test: NITRITE, URINE AUTO; Value: NEGATIVE; Range: NEGATIVE; Status: F Test: LEUKOCYTE ESTERASE, URINE AUTO; Value: NEGATIVE; Range: NEGATIVE; Status: F Test: BLOOD, URINE BLOOD; Value: NEGATIVE; Range: NEGATIVE; Status: F Test: WBC, URINE AUTO; Value: 1; Range: 0-3; Units: /HPF; Status: F Test: RBC, URINE AUTO; Value: 6; Range: 0-3; Abnormal: Above high normal; Units: /HPF; Status: F Test: BACTERIA, URINE AUTO; Value: NEGATIVE; Range: NEGATIVE; Status: F Test: SQUAMOUS EPITHELIAL CELL UR AU; Value: 0; Range: 0-6; Units: /HPF; Status: F Test: MUCUS, URINE; Value: SMALL; Range: NEGATIVE; Status: F Test: HYALINE CAST, URINE AUTO; Value: 0; Range: 0-1; Units: /LPF; Status: F Lab Order: Urine Culture; SPEC'M 09/04/16 15:43 Test: URINE CULTURE; Value: <EXTERNAL COMMENT eCWMed> FULL REPORT IN LAB NOTES (eCW and Medent).; Status: F Test: URINE CULTURE; Value: URINE CULTURE RESULT NO GROWTH; Status: F Radiology Order: Chest, 2 View (pa\\E\\lat) Test: Chest, 2 View (pa\\E\\lat) REASON FOR EXAMINATION: fever;Cough; Chest two views; ; HISTORY: Cough; ; Comparison: None; ; Minimal peribronchial cuffing is present. The heart is normal in size. The; pulmonary vasculature is normal in appearance. The bony structure is intact.; ; IMPRESSION: There is minimal peribronchial cuffing consistent with asthma or; bronchitis.; ; ; Signed by; Jose Laughlin MD 09/04/2016 02:48 P; Outcome: 15:41 Discharge ordered by Provider. dt4 16:18 Discharge ordered by Provider. mo1 16:30 Discharge Assessment: Patient awake, alert and oriented x 3. No cognitive and/or jc4 functional deficits noted. Patient verbalized understanding of disposition instructions. patient administered narcotics - no. The following High Risk Discharge criteria are identified: None. Discharged to home ambulatory. Condition: stable. Discharge instructions given to patient, Instructed on discharge instructions, follow up and referral plans. medication usage, Demonstrated understanding of instructions, medications, Pt was receptive of discharge instructions/ teaching. Work note provided to patient. No special radiology studies were completed. Property :Personal belongings accompany Pt. 16:31 Patient left the ED. jc4 Signatures: Dispatcher MedHost EDMS Luisa Jolley, Reg Reg Dk Maria RN RN mlb1 Jacki Roldan RN RN hs1 Eve Colbert RN RN jc4 Kadi Alcazar, BUILDING APPRAISER BUILDING APPRAISER ct3 Starla Lainez,RN RN dsf Dk Gabriel PA PA mo1 Adriana Handy, PANikhilC PA-C dt4 Saqib Chinchilla, BUILDING APPRAISER BUILDING APPRAISER jrArlette Thornton Jessica,RN RN ja5 Corrections: (The following items were deleted from the chart) 11:43 11:41 Presenting complaint: Patient states: "Im sick as a dog" hs1 hs1 Chart Complete MTDD
== END 2016-09-04 16:31 | disposition home or self-care (01) ==
LOC: M ED 11:36
DX: J20.9 Acute bronchitis, unspecified (principal); R50.9 Fever, unspecified; M54.9 Dorsalgia, unspecified; F17.200 Nicotine dependence, unspecified, uncomplicated

== ENCOUNTER 2017-09-29 23:26 | Emergency (ER) | payer OTHER ==
[2017-09-30] MEDS: KETOROLAC TROMETHAMINE 10 MG TAB PO (01:56)
== END 2017-09-30 02:03 | disposition home or self-care (01) ==
LOC: M ED 23:26
DX: S23.3XXA Sprain of ligaments of thoracic spine, initial encounter (principal); X58.XXXA Exposure to other specified factors, initial encounter; Y92.9 Unspecified place or not applicable; Y93.9 Activity, unspecified; F17.200 Nicotine dependence, unspecified, uncomplicated
CPT/HCPCS: 99282